=== PATIENT | female | born 2000 | race African-American/Black ===

== ENCOUNTER 2022-11-03 10:55 | Emergency (ER) | payer OTHER ==
[~2022-11-03] VITALS: Ht 180.3 cm; Wt 65.5 kg
[2022-11-03] MEDS ORDERED: TraMADol HCL 50 MG TABLET PO ONE (12:00)
[2022-11-03 12:18] VITALS: BP 137/89
[2022-11-03] MEDS ORDERED: IBUP-1492 PO ×2 (12:19→12:22)
== END 2022-11-03 12:31 | disposition home or self-care (01) ==
LOC: EMS 10:55
DX: S93.402A Sprain of unspecified ligament of left ankle, initial encounter (principal); S90.32XA Contusion of left foot, initial encounter; F12.90 Cannabis use, unspecified, uncomplicated; Z98.890 Other specified postprocedural states; X58.XXXA Exposure to other specified factors, initial encounter; Y93.89 Activity, other specified; Y92.89 Other specified places as the place of occurrence of the external cause; Y99.8 Other external cause status
CPT/HCPCS: 29580; 99284

== ENCOUNTER 2025-04-19 13:35 | Emergency (ER) | payer OTHER ==
[~2025-04-19] VITALS: Ht 180.3 cm; Wt 72.7 kg
[~2025-04-19 13:35] MED LIST: IBUP-1492 PO
[2025-04-19 13:52] VITALS: BP 136/105; PULSE 92; RESP 18; TEMP 98.4; O2SAT 100
[2025-04-19] MEDS: IBUPROFEN 600 MG TABLET PO ONE (14:55)
== END 2025-04-19 15:53 | disposition home or self-care (01) ==
LOC: EMS 13:41
DX: M25.532 Pain in left wrist (principal); F12.90 Cannabis use, unspecified, uncomplicated
CPT/HCPCS: 99282; 99283

== ENCOUNTER 2025-04-23 18:34 | Emergency (ER) | payer OTHER ==
[~2025-04-23] VITALS: Ht 180.3 cm; Wt 72.7 kg
[2025-04-23 19:30] VITALS: BP 134/83; PULSE 89; RESP 18; TEMP 97.3; O2SAT 99
== END 2025-04-23 21:45 | disposition home or self-care (01) ==
LOC: EMS 18:35
DX: M21.332 Wrist drop, left wrist (principal); F12.90 Cannabis use, unspecified, uncomplicated; F10.90 Alcohol use, unspecified, uncomplicated; Z98.890 Other specified postprocedural states; Y90.9 Presence of alcohol in blood, level not specified
CPT/HCPCS: 99282; 99283